=== PATIENT | male | born 1965 | race Two or more races ===

== ENCOUNTER 2022-05-12 07:06 | Day surgery (SDC) | payer MEDICAID ==
[2022-05-12] VITALS (9 sets, daily range): BP systolic 111–122; BP diastolic 76–83
[~2022-05-12] VITALS: Ht 167.6 cm; Wt 86.2 kg
[~2022-05-12 07:06] MED LIST: GLIP10TA9 PO; METF-370 PO
[2022-05-12] MEDS ORDERED: IOHEXOL 350 MG/ML 100ML IJ ONE (07:29)
[2022-05-12] MEDS ORDERED: IODIXANOL 320MG/ML 100ML BTL IV ONE (07:29)
[2022-05-12] MEDS ORDERED: LIDOCAINE 2%HCL (LOCAL ANESTH.) INJ 10ml MDV ONE (07:30)
[2022-05-12] MEDS ORDERED: HEPARIN IN NS 1000Units/500mL 1,500 ML ONE (07:30)
[2022-05-12] MEDS ORDERED: ANGIOMAX 250 MG VIAL IV ONE (07:58)
[2022-05-12] MEDS ORDERED: HEPARIN SODIUM (PORCINE) 5000 UNITS/ML 1ML VIAL ONE (07:58)
[2022-05-12] MEDS ORDERED: VERAPAMIL 2.5MG/ML INJ 2ML VIAL IV ONE (07:58)
[2022-05-12] MEDS ORDERED: fentaNYL CITRATE 100 MCG/2 ML VL ONE (07:59)
[2022-05-12] MEDS ORDERED: SODIUM CHL 0.9% 50 ML ONE (07:59)
[2022-05-12] MEDS ORDERED: MIDAZOLAM HCL 2MG/2ML 2ml VIAL (1mg/ml) ONE (07:59)
== END 2022-05-12 11:05 | disposition home or self-care (01) ==
LOC: CATH 07:06
PROVIDERS: ATTEND Internal Medicine
DX: R94.39 Abnormal result of other cardiovascular function study (principal); I25.118 Atherosclerotic heart disease of native coronary artery with other forms of angina pectoris; Z87.891 Personal history of nicotine dependence; Z20.822 Contact with and (suspected) exposure to COVID-19
CPT/HCPCS: 93005; 93458; C1887; C1894; J0583; J1644; J2001; J2250; J3010; Q9967; U0003; 99152

== ENCOUNTER 2025-01-30 07:58 | Day surgery (SDC) | payer OTHER, MEDICAID ==
[~2025-01-30] VITALS: Ht 167.6 cm; Wt 83.9 kg
[~2025-01-30 07:58] MED LIST changes: +ATEN-60 PO
[2025-01-30 09:36] LABS: Anion Gap 7 (5-15); Carbon Dioxide 27 mmol/L (20-31); Chloride 105 mmol/L (98-107); Potassium 4.8 mmol/L (3.5-5.1); Sodium 139 mmol/L (136-145)
[2025-01-30 09:37] LABS: Calcium 9.8 mg/dL (8.7-10.4)
[2025-01-30 09:42] LABS: BUN/Creatinine Ratio 13.5 (10.0-20.0); Blood Urea Nitrogen 15 mg/dL (9-23)
[2025-01-30 09:44] LABS: Glucose 148 mg/dL (74-106)
[2025-01-30] MEDS ORDERED: ANGIOMAX 250 MG VIAL IV ONE (09:51)
[2025-01-30] MEDS ORDERED: VERAPAMIL 2.5MG/ML INJ 2ML VIAL IV ONE (09:51)
[2025-01-30] MEDS ORDERED: MIDAZOLAM HCL 2MG/2ML 2ml VIAL (1mg/ml) ONE (09:52)
[2025-01-30] MEDS ORDERED: SODIUM CHL 0.9% 0 ML ONE (09:52)
[2025-01-30] MEDS ORDERED: LIDOCAINE 2%HCL (LOCAL ANESTH.) INJ 20ML MDV ONE (09:52)
[2025-01-30] MEDS ORDERED: fentaNYL CITRATE 100 MCG/2 ML VL ONE (09:52)
[2025-01-30] MEDS ORDERED: IODIXANOL 320MG/ML 100ML BTL IV ONE (10:01)
[2025-01-30] MEDS ORDERED: HEPARIN SODIUM (PORCINE) 5000 UNITS/ML 1ML VIAL ONE (10:32)
--- NOTE | 2025-01-30 10:39 | DVHOP2 ---
Operative Report Operative Report CARDIAC QA REVIEWER PROCEDURE REPORT [place], [place] Date of Service: 01/30/25 Design Technician: Wong Iraheta MD PROCEDURES PERFORMED: Coronary angiogram, left heart catheterization, conscious sedation administration and supervision, less than 15 minutes; fluoroscopy use and interpretation. 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 The patient was brought to the cardiac petroleum laboratory technician in [place] state. The patient was prepped in a sterile fashion. Sedation was used per cardiac cath protocol. I administered 2 mL of 2% lidocaine to the right wrist. With an antegrade front wall puncture. I cannulated the right radial artery and placed a 6-Macedonian [place] slender. Next, an intra-arterial spasmolytic was administered. Next, a - 5 [place] catheter a were used for coronary angiogram and LVEDP measurement and pressure pullback. At the completion of procedure, all guides and wires were removed, and there were no immediate complications. FINDINGS: RCA: Moderate vessel off the right sinus of Valsalva, there is a downward takeoff ostium. prox RCA is HOUSEKEEPING/LAUNDRY with antegrade and L to R collaterals. (2021 cath showed moderate non severe cad throughout RCA) LEFT MAIN: Moderate size left main, it bifurcates into LAD and circumflex. no severe stenosis CIRCUMFLEX: Moderate caliber vessel coming off the left main . prox CX 95% stenosis (in 2021 this was a non critical moderate stenosis) LAD: LAD is a moderate caliber vessel coming of the left main. it is a prox HOUSEKEEPING/LAUNDRY with antegrade colalterals to LAD and Diag from L CX system. apical LAD is visualized retrograde filling. this is the same as 2021. CONCLUSIONS: 1. critical multivessel CAD 2. moderate LV dysfunction PLAN: Aggressive risk factor modification and medical management for the patient. cabg consult WONG IRAHETA MD January 30, 2025 10:39
== END 2025-01-30 14:40 | disposition home or self-care (01) ==
LOC: CATH 07:58
PROVIDERS: ATTEND Internal Medicine
DX: I25.119 Atherosclerotic heart disease of native coronary artery with unspecified angina pectoris (principal); I25.82 Chronic total occlusion of coronary artery; E11.9 Type 2 diabetes mellitus without complications; E78.5 Hyperlipidemia, unspecified; G47.00 Insomnia, unspecified; Z79.84 Long term (current) use of oral hypoglycemic drugs; Z98.890 Other specified postprocedural states
CPT/HCPCS: 36415; 80048; 93458; C1894; J1644; J2250; J3010; Q9967; 99152

== ENCOUNTER 2025-04-20 05:29 | Emergency (ER) | payer OTHER, MEDICAID ==
[~2025-04-20] VITALS: Ht 167.6 cm; Wt 84.6 kg
--- NOTE | 2025-04-20 06:18 | ED.PDOC ---
HPI Comments This is a 60 year old male presenting to the ED with chief complaint of chest pain. Patient reports that he woke up about an hour and a half ago with sharp, continuous, unprovoked chest pain with associated radiation to the bilateral arms, sweats, and SOB. Patient states that his pain was a 10/10, however, after an ASA and 2 doses of NTG, his pain went down to a 7/10. Patient notes he has upcoming triple bypass surgery in [place] on 05/10. Patient denies any N/V, back pain, abdominal pain, cough, dizziness, headache, fever, or chills. Chief Complaint: Chest Pain Time Seen by MD: 06:16 Reviewed Notes: Nurses Notes, Medications, Allergies Allergies: Coded Allergies: NO KNOWN ALLERGIES (Unverified , 05/09/22) Home Meds Reported Medications Atenolol (Atenolol) 25 Mg Tab, 25 MG PO DAILY 01/27/25 Metformin Hydrochloride (Metformin Hcl) 500 Mg Tab, 1 TAB PO BID, #60 TAB 3 Refills 05/09/22 Glipizide (Glipizide) 10 Mg Tab, 1 TAB PO BID, #60 TAB 5 Refills 05/09/22 Information Source: Patient Mode of Arrival: Ambulatory Severity: Moderate Timing: Hours Duration: Since onset Prehospital treatment: None Location: Substernal Radiation: Arm (R), Arm (L) Quality: Sharp Onset: At Rest Cardiac Risk Factors: Diabetes PE Risk Factors: None History of: Similar pain in past, Aspirin Modifying Factors: NTG Associated Signs and Symptoms: SOB Past Medical History PAST MEDICAL HISTORY: DM Surgical History: Denies all surgeries Family History Family History: Reviewed,noncontributory to illness Social History Smoker: Non-Smoker Alcohol: Denies ETOH Use Drugs: Denies Drug Use Lives In: Home Constitutional: reports: sweats; denies: chills, diaphoresis, fatigue, fever, malaise, weakness, others EENTM: denies: blurred vision, double vision, ear bleeding, ear discharge, ear drainage, ear pain, ear ringing, eye pain, eye redness, hearing loss, mouth pain, mouth swelling, nasal discharge, nose bleeding, nose congestion, nose pain , photophobia, tearing, throat pain, throat swelling, voice changes, others Respiratory: reports: shortness of breath; denies: cough, hemoptysis, orthopnea, SOB at rest, SOB with excertion, stridor, wheezing, others Cardiovascular: reports: chest pain; denies: dizzy spells, diaphoresis, Dyspnea on exertion, edema, irregular heart beat, left arm pain, lightheadedness, palpitations, PND, syncope, others Gastrointestinal: denies: abdomen distended, abdominal pain, blood streaked bowels, constipated, diarrhea, dysphagia, difficulty swallowing, hematemesis, melena, nausea, poor appetite, poor fluid intake, rectal bleeding, rectal pain, vomiting, others Genitourinary: denies: burning, dysuria, flank pain, frequency, hematuria, incontinence, penile discharge, penile sore, pain, testicle pain, testicle swelling, urgency, others Neurological: denies: dizziness, fainting, headache, left sided numbness, left sided weakness, numbness, paresthesia, pre-existing deficit, right sided numbness, right sided weakness, seizure, speech problems, tingling, tremors, weakness, others Musculoskeletal: denies: back pain, gout, joint pain, joint swelling, muscle pain, muscle stiffness, neck pain, others Integumetry: denies: bruises, change in color, change in hair/nails, dryness, laceration, lesions, lumps, rash, wounds, others Allergic/Immunocompromised: denies: Difficulty Healing, Frequent Infections, Hives, Itching, others Hematologic/Lymphatic: denies: anemia, blood clots, easy bleeding, easy bruising, swollen glands, others Endocrine: denies: excessive hunger, excessive sweating, excessive thirst, excessive urination, flushing, intolerance to cold, intolerance to heat, unexplained weight gain, unexplained weight loss, others Psychiatric: denies: anxiety, bipolar disorder, depression, hopeless, panic disorder, schizophrenia, sleepless, suicidal, others All Other Systems: Reviewed and Negative Physical Exam General Appearance: Moderate Distress, Normal HEENT: Normal ENT Inspection, Pharynx Normal, TMs Normal Neck: Full Range of Motion, Non-Tender, Normal, Normal Inspection Respiratory: Chest Non-Tender, Lungs Clear, No Accessory Muscle Use, No Respiratory Distress, Normal Breath Sounds Cardiovascular: No Edema, No JVD, No Murmur, No Gallop, Normal Peripheral Pulses, Regular Rate/Rhythm Breast Exam: Deferred Gastrointestinal: No Organomegaly, Non Tender, No Pulsatile Mass, Normal Bowel Sounds, Soft Genitalia: Deferred Pelvic: Deferred Rectal: Deferred Extremities: No calf tenderness, Normal capillary refill, Normal inspection, Normal range of motion, Non-tender, No pedal edema Musculoskeletal : Apperance: Normal Neurologic: Alert, curator medical museum II-XII nml as Tested, No Motor Deficits, Normal Affect, Normal Mood, No Sensory Deficits Cerebellar Function: Normal Reflexes: Normal Skin: Dry, Normal Color, Warm Peripheral Pulses: 3+ Radial (R), 3+ Radial (L) Lymphatic: No Adenopathy EKG EKG : Pulse Rate (adult): 56 [place]: Normal Cardiac Rhythm: NSR Block: None Hypertrophy: None ST: Normal Comments Abnormal T-Waves Was a procedure done? Was a procedure done?: No CP Differential Dx Differential Diagnosis: A-fib, A-Flutter, Angina, Anxiety / Panic Attack, Atrial Dysrhythmia, Electrolyte Disorder X-Ray, Labs, Meds, VS Vital Signs Date Time Temp Pulse Resp B/P (MAP) Pulse Ox O2 Delivery O2 Flow Rate FiO2 04/20/25 06:23 56 04/20/25 06:20 56 04/20/25 05:37 97.7 55 22 120/63 97 97.7 04/20/25 05:32 72 Lab Test 04/20/25 08:25 04/20/25 06:45 04/20/25 05:50 Range/Units Troponin I High Sensitivity Pending 634 *H 409 *H </=54 ng/L White Blood Count 5.7 4.4-10.8 10^3/uL Red Blood Count 4.71 4.5-5.90 10^6/uL Hemoglobin 15.3 13.5-17.5 g/dL Hematocrit 43.4 41.0-53.0 % Mean Corpuscular Volume 92.2 80.0-100.0 fL Mean Corpuscular Hemoglobin 32.4 H 28.0-32.0 pg Mean Corpuscular Hemoglobin Concent 35.1 32.0-36.0 g/dL Red Cell Distribution Width 13.5 11.8-14.3 % Platelet Count 195 140-450 10^3/uL Mean Platelet Volume 8.4 6.9-10.8 fL Neutrophils (%) (Auto) 71.7 37.0-80.0 % Lymphocytes (%) (Auto) 20.2 10.0-50.0 % Monocytes (%) (Auto) 5.7 0.0-12.0 % Eosinophils (%) (Auto) 1.0 0.0-7.0 % Basophils (%) (Auto) 1.4 0.0-2.0 % Neutrophils # (Auto) 4.1 1.6-8.6 10 ^3/uL Lymphocytes # (Auto) 1.1 0.4-5.4 10 ^3/uL Monocytes # (Auto) 0.3 0-1.3 10 ^3/uL Eosinophils # (Auto) 0.1 0-0.8 10 ^3/uL Basophils # (Auto) 0.1 0-0.2 10 ^3/uL Nucleated Red Blood Cells 0.1 % Sodium Level 138 136-145 mmol/L Potassium Level 4.1 3.5-5.1 mmol/L Chloride Level 103 98-107 mmol/L Carbon Dioxide Level 27 20-31 mmol/L Anion Gap 8 5-15 Blood Urea Nitrogen 19 9-23 mg/dL Creatinine 1.03 0.700-1.30 mg/dL Glomerular Filtration Rate Calc 83 >90 mL/min BUN/Creatinine Ratio 18.4 10.0-20.0 Serum Glucose 227 H 74-106 mg/dL Calcium Level 10.1 8.7-10.4 mg/dL Current Medications Medications (Trade) Dose Ordered Sig/Mauri Route Start Time Stop Time Status Last Admin Enoxaparin Sodium (Lovenox) 80 mg ONCE ONCE SC 04/20/25 07:00 04/20/25 07:01 DC 04/20/25 06:57 Patient alert. Complaining of chest pain. History of coronary artery disease. Vitals stable. Waiting for surgery. Has taken his aspirin nitro. Some relief. EKG reviewed does not show any acute changes. Explained to the patient. Continue monitoring. Time of 1ST Reevaluation: 07:15 Reevaluation 1ST: Unchanged Patient Education/Counseling: Diagnosis, Treatment Family Education/Counseling: No Family Present Additional Information Reviewed patient's previous visit(s): None The following tests were ordered, and results were reviewed by me: Troponin, EKG, CBC, BMP Additional information was gathered from interviewing the following independent historian: None I reviewed and agreed with the following test results read by other provider: None I discussed treatments and results with medical personnel and: Patient Comprehensive systems review obtained and negative except for what is stated in the HPI. SEPSIS Sepsis Screen Date sepsis recognized/suspect: Apr 20, 2025 Time Sepsis recognized/suspect: 0544 Recent Procedure: No On Antibiotic Therapy: No Respiratory Rate >20: Yes Heart Rate >90: No Temp<36 C (96.8 F) or >38.3 C: No SBP <90 or MAP <65 mmHG: No New Acute Mental Status Change: No Is the patient on CPAP, BIPAP,: No Physician Orders Troponin-I Hs (04/20/25 08:33) Electrocardigram (04/20/25 06:33) Electrocardigram (04/20/25 08:33) Vital Signs Date Time Temp Pulse Resp B/P (MAP) Pulse Ox O2 Delivery O2 Flow Rate FiO2 04/20/25 06:23 56 04/20/25 06:20 56 04/20/25 05:37 97.7 55 22 120/63 97 97.7 04/20/25 05:32 72 Laboratory Tests Test 04/20/25 06:45 White Blood Count 5.7 10^3/uL (4.4-10.8) Medications Medications Dose Ordered Sig/Mauri Route Start Time Stop Time Status Last Admin Dose Admin Enoxaparin Sodium 80 mg ONCE ONCE SC 04/20/25 07:00 04/20/25 07:01 DC 04/20/25 06:57 Departure 1 Departure Time of Disposition: 06:22 Impression: Primary Impression: Chest pain of unknown etiology Additional Impression: NSTEMI (non-ST elevated myocardial infarction) Disposition: 09 ADMITTED INPATIENT Admit to: Med Surg Condition: Guarded Critical Care Note Critical Care Time?: Yes (90 min-critical care time only) Stability Stability form required: No Heart Score Heart Score: Heart Score Response (Comments) Value History Moderate Suspicious 1 EKG Normal 0 Age 45-64 1 Risk Factors >3 or Hx ASHD 2 Troponin >3 x's Normal limit 2 Total 6 I personally scribed for THEODORE VERDUZCO MD ([email or web address]) on 04/20/25 at 06:18. Electronically submitted by Royce Desir ([email or web address]). I personally scribed for THEODORE VERDUZCO MD ([email or web address]) on 04/20/25 at 06:23. Electronically submitted by Royce Desir ([email or web address]). I personally scribed for THEODORE VERDUZCO MD ([email or web address]) on 04/20/25 at 06:28. Electronically submitted by Royce Desir ([email or web address]). I personally scribed for THEODORE VERDUZCO MD ([email or web address]) on 04/20/25 at 06:37. Electronically submitted by Sony Valdez ([email or web address]). I personally scribed for THEODORE VERDUZCO MD ([email or web address]) on 04/20/25 at 06:39. Electronically submitted by Sony Valdez ([email or web address]). THEODORE VERDUZCO MD Apr 20, 2025 06:18
--- NOTE | 2025-04-20 06:25 | ECG ---
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
[2025-04-20 06:56] LABS: Hematocrit 43.4 % (41.0-53.0); Hemoglobin 15.3 g/dL (13.5-17.5); Mean Corpuscular Hemoglobin 32.4 pg (28.0-32.0); Mean Corpuscular Volume 92.2 fL (80.0-100.0); Nucleated Red Blood Cells % 0.1 %
[2025-04-20] MEDS: ENOXAPARIN SOD 80 MG/0.8ML SYRINGE SC ONE (06:57)
[2025-04-20 07:05] LABS: Chloride 103 mmol/L (98-107); Potassium 4.1 mmol/L (3.5-5.1); Sodium 138 mmol/L (136-145)
[2025-04-20 07:06] LABS: Anion Gap 8 (5-15); Calcium 10.1 mg/dL (8.7-10.4); Carbon Dioxide 27 mmol/L (20-31)
[2025-04-20 07:11] LABS: BUN/Creatinine Ratio 18.4 (10.0-20.0); Blood Urea Nitrogen 19 mg/dL (9-23); Glucose 227 mg/dL (74-106)
[2025-04-20 08:30] VITALS: BP 123/82; PULSE 56; PULSE 64; RESP 16; TEMP 97.8; O2SAT 98
--- NOTE | 2025-04-20 18:59 | ECG ---
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
--- NOTE | 2025-04-24 08:49 | ECG ---
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
== END 2025-04-20 09:30 | disposition left against medical advice (07) ==
LOC: ER 05:29
DX: R07.89 Other chest pain (principal); I21.4 Non-ST elevation (NSTEMI) myocardial infarction; E11.9 Type 2 diabetes mellitus without complications; Z79.899 Other long term (current) drug therapy; Z79.84 Long term (current) use of oral hypoglycemic drugs
CPT/HCPCS: 36415; 80048; 82947; 84484; 85025; 93005; 96372; 99291; 99292; J1650; 82962